=== PATIENT | female | born 1990 | race Caucasian/White ===

== ENCOUNTER 2020-06-04 09:28 | Emergency (ER) | payer OTHER ==
[~2020-06-04] VITALS: Ht 167.6 cm; Wt 69.0 kg
[2020-06-04 11:40] LABS: BASOPHILS 0.3 % (0.0-2.0); EOSINOPHILS 0.1 % (0.0-3.0); HEMATOCRIT 38.8 % (37.0-47.0); HEMOGLOBIN 12.9 gm/dL (12.0-15.0); LYMPHOCYTES 4.9 % (24.0-44.0); MCH 30.7 pg (26.0-34.0); MCHC 33.2 g/dL (28.0-37.0); MCV 92.4 fL (80.0-100.0); MONOCYTES 6.9 % (1.0-8.0); PLATELET COUNT 178 thou/uL (150-400); POLYS 87.8 % (36.0-66.0); RDW 12.6 % (10.5-14.5); WBC 13.7 thou/uL (4.0-11.0)
[2020-06-04 12:55] LABS: CALCIUM 8.7 mg/dL (8.5-10.1); POTASSIUM 3.6 mmol/L (3.5-5.1)
[2020-06-04] MEDS ORDERED: TIZANIDINE HCL2 M1 PO (14:28)
[2020-06-04 14:48] VITALS: BP 126/67
== END 2020-06-04 14:48 | disposition home or self-care (01) ==
LOC: ER 09:28
PROVIDERS: Emergency Medicine
DX: M54.9 Dorsalgia, unspecified (principal); R51 Headache; R20.0 Anesthesia of skin; R07.81 Pleurodynia; J45.909 Unspecified asthma, uncomplicated; F17.210 Nicotine dependence, cigarettes, uncomplicated; Z90.49 Acquired absence of other specified parts of digestive tract; Z88.1 Allergy status to other antibiotic agents; Z88.0 Allergy status to penicillin; W18.39XA Other fall on same level, initial encounter; W22.09XA Striking against other stationary object, initial encounter; Y93.89 Activity, other specified; Y92.89 Other specified places as the place of occurrence of the external cause; Y99.8 Other external cause status